=== PATIENT | female | born 1995 | race Hispanic/Latino ===

== ENCOUNTER 2020-01-21 21:50 | Observation (INO) | payer MEDICAID ==
[~2020-01-21] VITALS: Ht 152.4 cm; Wt 107.5 kg
[2020-01-21] MEDS ORDERED: PREN-18 PO (22:17)
[2020-01-21] MEDS ORDERED: LEVO50TA11 PO (22:17)
[2020-01-21 22:43] LABS: BASOPHILS % (AUTO) 0.4 % (0.0-5.0); EOSINOPHILS % (AUTO) 0.5 % (0.0-8.0); HEMATOCRIT 32.2 % (36-48); LYMPHOCYTES % (AUTO) 19.7 % (21.0-51.0); MEAN CORPUSCULAR HEMOGLOBIN 28.3 pg (27.0-33.0); MEAN CORPUSCULAR HGB CONC 32.9 g/dL (32.0-36.0); MEAN CORPUSCULAR VOLUME 86.1 fL (79-99); MONOCYTES % (AUTO) 8.5 % (3.0-13.0); NEUTROPHILS % (AUTO) 70.6 % (40.0-77.0); PLATELET COUNT (AUTO) 270 K/uL (130-400); RED BLOOD CELL COUNT(AUTO) 3.74 MIL/uL (4.00-5.50); RED CELL DISTRIBUTION WIDTH 13.2 % (11.0-15.5); WHITE BLOOD COUNT (AUTO) 7.7 K/uL (4.8-10.8)
[2020-01-21 22:48] LABS: APPEARANCE,URINE Clear (CLEAR); BILIRUBIN,URINE Negative (NEGATIVE); COLOR,URINE Yellow (YELLOW); GLUCOSE, URINE (UA) Negative (NEGATIVE); KETONES,URINE Negative (NEGATIVE); LEUKOCYTE ESTERASE ,URINE Negative (NEGATIVE); NITRATE,URINE Negative (NEGATIVE); OCCULT BLOOD,URINE Negative (NEGATIVE); PH,URINE 7.5 (5.0-8.0); PROTEIN,URINE Negative (NEGATIVE); UROBILINOGEN,URINE 0.2 mg/dL (0.2-1.0)
[2020-01-21 23:02] LABS: CREATININE 0.6 mg/dL (0.5-1.5)
[2020-01-21 23:07] LABS: ALBUMIN 2.5 g/dL (3.5-5.0); BILIRUBIN,TOTAL 0.2 mg/dL (0.2-1.0); INR 0.87 (0.85-1.15); PARTIAL THROMBOPLASTIN TIME 26.4 SEC (26.3-35.5); PROTHROMBIN TIME 9.4 SEC (9.6-11.6); TOTAL PROTEIN, SERUM 6.9 g/dL (6.0-8.3); URIC ACID 4.5 mg/dL (2.6-7.2)
== END 2020-01-21 23:50 | disposition home or self-care (01) ==
LOC: EDH 21:50 → LDH 21:51
PROVIDERS: ADMIT Specialist; ATTEND Specialist
DX: O16.3 Unspecified maternal hypertension, third trimester (principal); Z3A.38 38 weeks gestation of pregnancy
CPT/HCPCS: 36415; 76805; 80053; 81003; 84550; 85025; 85384; 85610; 85730; 99284; G0378 ×2

== ENCOUNTER 2020-01-28 19:45 | Inpatient (IN) | payer MEDICAID ==
[~2020-01-28] VITALS: Ht 152.4 cm; Wt 107.5 kg
[~2020-01-28 19:45] MED LIST: LEVO50TA11 PO; PREN-18 PO
[2020-01-28] MEDS ORDERED: OXYTOCIN-LR 20 UNITS/1000 ML 1,000 ML IV SCH (20:00)
[2020-01-28] MEDS ORDERED: NALOXONE HCL 0.4 MG/1 ML ML IV PRN (20:00)
[2020-01-28] MEDS ORDERED: LACTATED RINGERS 500 ML 500 ML IV PRN (20:00)
[2020-01-28] MEDS ORDERED: EPHEDRINE SULFATE 50 MG/ML AMPULE IVP PRN (20:00)
[2020-01-28] MEDS ORDERED: DINOPROSTONE 10 MG VAGINAL SUPP EC SCH (20:00)
[2020-01-28 20:28] LABS: APPEARANCE,URINE Clear (CLEAR); BILIRUBIN,URINE Negative (NEGATIVE); COLOR,URINE Yellow (YELLOW); GLUCOSE, URINE (UA) Negative (NEGATIVE); KETONES,URINE Negative (NEGATIVE); LEUKOCYTE ESTERASE ,URINE Negative (NEGATIVE); NITRATE,URINE Negative (NEGATIVE); OCCULT BLOOD,URINE Negative (NEGATIVE); PROTEIN,URINE POS 1+ mg/dL (NEGATIVE)
[2020-01-28 20:37] LABS: BACTERIA,URINE Rare /HPF (None Seen); RBC,URINE 0-1 /HPF (0-1); SQUAMOUS EPITHELIAL CELL,UR Few /HPF (0-2); WBC,URINE 0-1 /HPF (0-1)
[2020-01-28 20:39] LABS: MUCUS,URINE Rare LPF (None Seen)
[2020-01-28 20:51] LABS: HEMATOCRIT 31.9 % (36-48); MEAN CORPUSCULAR HEMOGLOBIN 28.1 pg (27.0-33.0); MEAN CORPUSCULAR HGB CONC 32.9 g/dL (32.0-36.0); MEAN CORPUSCULAR VOLUME 85.3 fL (79-99); RED BLOOD CELL COUNT(AUTO) 3.74 MIL/uL (4.00-5.50); RED CELL DISTRIBUTION WIDTH 13.7 % (11.0-15.5); WHITE BLOOD COUNT (AUTO) 9.4 K/uL (4.8-10.8)
[2020-01-29 08:56] VITALS: BP 124/74
[2020-01-29] MEDS: OXYTOCIN-LR 20 UNITS/1000 ML 1,000 ML IV SCH (09:59)
[2020-01-29] MEDS: LACTATED RINGERS 1000ML 1,000 ML IV PRN (12:53)
[2020-01-29] MEDS ORDERED: PREN1TAB80 PO (21:55)
[2020-01-29] MEDS ORDERED: LEVO50TA11 PO (21:55)
[2020-01-29] MEDS ORDERED: CALC500T13 PO (21:56)
[2020-01-30] MEDS: OXYTOCIN-LR 20 UNITS/1000 ML 1,000 ML IV SCH (05:03)
[2020-01-30] MEDS ORDERED: FENTANYL CITRATE PF 50 MCG/1 ML 2ML VIAL ONE (07:23)
[2020-01-30] MEDS: LACTATED RINGERS 1000ML 1,000 ML IV PRN ×2 (07:55)
[2020-01-30] MEDS ORDERED: ONDANSETRON HCL 4 MG/2 ML VIAL ONE (10:26)
[2020-01-30 12:11] LABS: HEPATITIS Bs ANTIGEN SCREEN P Negative (Negative)
[2020-01-30] MEDS ORDERED: CEFAZOLIN SODIUM 1 GM VIAL ONE (13:49)
[2020-01-30] MEDS ORDERED: CEFAZOLIN SODIUM 1 GM VIAL IVP PRN (14:00)
[2020-01-30] MEDS ORDERED: OXYTOCIN 10 UNIT/1ML 10ML VIAL ONE (14:07)
[2020-01-30] MEDS ORDERED: CEFAZOLIN SODIUM 1 GM VIAL IVP ONE (14:08)
[2020-01-30] MEDS ORDERED: LIDOCAINE HCL-MPF 2% 5ML VIAL ONE ×2 (14:10→14:44)
[2020-01-30] MEDS ORDERED: MIDAZOLAM HCL 1 MG/ML 2ML VIAL ONE (14:47)
[2020-01-30] MEDS ORDERED: SODIUM CHLORIDE 0.9% 10 ML VIAL IVP PRN (16:15)
[2020-01-30] MEDS ORDERED: DEXTROSE 5 %-0.45 % NACL 1,000 ML IV PRN (16:15)
[2020-01-30] MEDS ORDERED: OXYTOCIN-LR 20 UNITS/1000 ML 1,000 ML IV PRN (16:15)
[2020-01-30 17:10] VITALS: BP 137/79
[2020-01-30] MEDS: ROPIVACAINE 0.2% 100ML VIAL 100 ML EP SCH ×2 (18:22→19:41)
[2020-01-30 20:00] VITALS: BP 135/67
[2020-01-30] MEDS ORDERED: PROMETHAZINE HCL 25 MG/ML 1ML AMPULE IM PRN (21:15)
[2020-01-30] MEDS ORDERED: NALOXONE HCL 0.4 MG/1 ML ML IVP PRN ×3 (21:15→21:30)
[2020-01-30] MEDS ORDERED: ONDANSETRON HCL 4 MG/2 ML VIAL IVP PRN ×2 (21:15→21:30)
[2020-01-30] MEDS ORDERED: EPHEDRINE SULFATE 50 MG/ML AMPULE IVP PRN (21:30)
[2020-01-30] MEDS ORDERED: DiphenhydrAMINE HCL 50 MG/ML VIAL IVP PRN (21:30)
[2020-01-30 22:00] VITALS: BP 135/63
[2020-01-30] MEDS: PROMETHAZINE HCL 25 MG/ML 1ML AMPULE IM PRN (23:29)
[2020-01-30] MEDS: MEPERIDINE-PF 75 MG/ML SYG IM PRN (23:29)
[2020-01-30 23:53] VITALS: BP 136/68
[2020-01-31] VITALS (7 sets, daily range): BP systolic 116–132; BP diastolic 59–76
[2020-01-31] MEDS: PROMETHAZINE HCL 25 MG/ML 1ML AMPULE IM PRN (02:36)
[2020-01-31] MEDS: MEPERIDINE-PF 75 MG/ML SYG IM PRN (02:36)
[2020-01-31] MEDS ORDERED: LEVOTHYROXINE 50 MCG TABLET PO SCH (07:30)
[2020-01-31 07:32] LABS: HEMATOCRIT 24.7 % (36-48); MEAN CORPUSCULAR HEMOGLOBIN 27.8 pg (27.0-33.0); MEAN CORPUSCULAR HGB CONC 32.8 g/dL (32.0-36.0); MEAN CORPUSCULAR VOLUME 84.9 fL (79-99); RED BLOOD CELL COUNT(AUTO) 2.91 MIL/uL (4.00-5.50); RED CELL DISTRIBUTION WIDTH 13.9 % (11.0-15.5); WHITE BLOOD COUNT (AUTO) 11.8 K/uL (4.8-10.8)
[2020-01-31] MEDS ORDERED: HYDROCODONE/ACETAMINOPHEN 5/325 MG TAB PO PRN (08:00)
[2020-01-31] MEDS: IBUPROFEN 800 MG TAB PO SCH ×2 (08:00→16:46)
[2020-01-31] MEDS ORDERED: ACETAMINOPHEN EXTRA STRENGTH 500 MG TABLET PO PRN (08:00)
[2020-01-31] MEDS ORDERED: BISACODYL 10 MG SUPP.RECT RC PRN (08:00)
[2020-01-31] MEDS ORDERED: HYDROCODONE/ACETAMINOPHEN 5/325 MG TAB ONE (08:13)
[2020-01-31] MEDS ORDERED: IBUPROFEN 800 MG TAB ONE (08:14)
[2020-01-31] MEDS: DOCUSATE SODIUM 100 MG CAP PO SCH ×2 (08:37→20:55)
[2020-01-31] MEDS: SIMETHICONE 80 MG TAB.CHEW PO PRN ×3 (08:37→20:55)
[2020-01-31] MEDS ORDERED: LEVO50TA11 PO (09:59)
[2020-01-31] MEDS ORDERED: PREN-18 PO (09:59)
[2020-01-31] MEDS: ACETAMINOPHEN-CODEINE 300/30MG TAB PO PRN ×2 (14:18→22:58)
[2020-02-01] MEDS: IBUPROFEN 800 MG TAB PO SCH ×2 (00:07→07:53)
[2020-02-01 03:23] VITALS: BP 116/68
[2020-02-01 07:30] VITALS: BP 127/72
[2020-02-01] MEDS: SIMETHICONE 80 MG TAB.CHEW PO PRN ×2 (07:51→13:58)
[2020-02-01] MEDS: DOCUSATE SODIUM 100 MG CAP PO SCH (07:52)
[2020-02-01] MEDS ORDERED: LACTULOSE 20 GM/30 ML UDCUP PO PRN (11:00)
[2020-02-01 12:00] VITALS: BP 136/62
[2020-02-01] MEDS: ACETAMINOPHEN-CODEINE 300/30MG TAB PO PRN (12:54)
== END 2020-02-01 14:45 | disposition home or self-care (01) | DRG 540 ==
LOC: LDH 19:45 → WSH 01-30 19:00
PROVIDERS: ADMIT Specialist; ATTEND Specialist
PROC: 10D00Z1 Extraction of Products of Conception, Low, Open Approach (ICD-10-PCS; principal; 2020-01-30 14:00)
DX: O62.2 Other uterine inertia (principal); Z37.0 Single live birth; Z88.7 Allergy status to serum and vaccine; Z3A.39 39 weeks gestation of pregnancy
CPT/HCPCS: 36415; 59510; 81001; 85027; 86592; 86850; 86900; 86901; 87340; A4314; A4344; A4606; G0378; J0690; J2175; J2250; J2405; J2550; J2590; J2795; J3010; J3490; J7120

== ENCOUNTER 2020-02-03 14:14 | Emergency (ER) | payer MEDICAID ==
[~2020-02-03 14:14] MED LIST changes: +CALC500T13 PO; +PREN1TAB80 PO
== END 2020-02-03 15:10 | disposition left against medical advice (07) ==
LOC: EDH 14:14
DX: R50.9 Fever, unspecified (principal); Z53.21 Procedure and treatment not carried out due to patient leaving prior to being seen by health care provider

== ENCOUNTER 2022-03-28 23:43 | Observation (INO) | payer BC, MEDICAID ==
[~2022-03-28] VITALS: Ht 154.9 cm; Wt 108.9 kg
[2022-03-29] MEDS ORDERED: LACTATED RINGERS 1000ML 1,000 ML IV SCH
[2022-03-29 00:23] LABS: APPEARANCE,URINE CLEAR (CLEAR); BILIRUBIN,URINE NEGATIVE (NEGATIVE); COLOR,URINE COLORLESS (YELLOW); GLUCOSE, URINE (UA) NEGATIVE (NEGATIVE); KETONES,URINE NEGATIVE (NEGATIVE); LEUKOCYTE ESTERASE ,URINE NEGATIVE Leu/uL (NEGATIVE); NITRATE,URINE NEGATIVE (NEGATIVE); OCCULT BLOOD,URINE NEGATIVE (NEGATIVE); PH,URINE 7.5 (5.0-8.0); PROTEIN,URINE NEGATIVE (NEGATIVE); UROBILINOGEN,URINE 0.2 mg/dL (0.2-1.0)
[2022-03-29 00:28] LABS: AMPHET/METH SCREEN,URINE NEGATIVE (NEGATIVE); BARBITURATE SCREEN, URINE NEGATIVE (NEGATIVE); BENZODIAZEPINES SCREEN,URINE NEGATIVE (NEGATIVE); CANNABINOID SCREEN,URINE NEGATIVE (NEGATIVE); COCAINE SCREEN,URINE NEGATIVE (NEGATIVE); OPIATE SCREEN,URINE NEGATIVE (NEGATIVE); PHENCYCLIDINE SCREEN,URINE NEGATIVE (NEGATIVE)
[2022-03-29 01:20] VITALS: BP 117/56
== END 2022-03-29 01:50 | disposition home or self-care (01) ==
LOC: EDH 23:43 → LDH 23:44
PROVIDERS: ADMIT Obstetrics & Gynecology; ATTEND Obstetrics & Gynecology
DX: O26.893 Other specified pregnancy related conditions, third trimester (principal); R10.9 Unspecified abdominal pain; O99.891 Other specified diseases and conditions complicating pregnancy; M54.9 Dorsalgia, unspecified; Z3A.32 32 weeks gestation of pregnancy
CPT/HCPCS: 80305; 81003; 96360; G0378 ×2; G0379; J7120